=== PATIENT | female | born 1980 | race Caucasian/White ===

== ENCOUNTER 2023-04-17 23:20 | Emergency (ER) | payer SELFPAY ==
[~2023-04-17] VITALS: Ht 170.2 cm; Wt 67.0 kg
[2023-04-17 23:39] VITALS: BP 91/56
[2023-04-18 00:42] LABS: HEMATOCRIT. 43.3 % (36.0-48.0); HEMOGLOBIN. 15.1 g/dL (12.0-16.0); MEAN CORPUSCULAR HEMOGLOBIN 31.5 pg (28.0-32.0); MEAN CORPUSCULAR VOLUME 90.4 fL (81.0-99.0); MEAN PLATELET VOLUME 8.1 fl (7.4-10.4); PLATELET 321 x1000/uL (130-400); RED BLOOD CELL COUNT 4.79 mill/uL (4.2-5.4); RED CELL DISTRIBUTION WIDTH 13.1 % (11.6-14.6)
[2023-04-18 00:49] LABS: CHLORIDE 105 mEq/L (98-107)
[2023-04-18 01:00] LABS: CLARITY URINE CLEAR (CLEAR); COLOR URINE DARK YELLOW (YELLOW); KETONES URINE NEGATIVE (NEGATIVE); LEUKOCYTE ESTERASE URINE TRACE (NEGATIVE); NITRITE URINE NEGATIVE (NEGATIVE); OCCULT BLOOD URINE NEGATIVE (NEGATIVE); PH URINE 5.5 (4.5-8.0); PROTEIN URINE TRACE (NEGATIVE); SPECIFIC GRAVITY URINE 1.027 (1.005-1.030)
[2023-04-18 01:17] LABS: PLATELET ESTIMATE NORMAL
== END 2023-04-18 02:13 | disposition left against medical advice (07) ==
LOC: ER 23:20
DX: R11.2 Nausea with vomiting, unspecified (principal); Z53.21 Procedure and treatment not carried out due to patient leaving prior to being seen by health care provider
CPT/HCPCS: 36415; 80053; 81003; 85025; 99281